=== PATIENT | female | born 1945 ===

== ENCOUNTER 2021-01-26 09:00 | Inpatient (IN) | payer OTHER ==
[~2021-01-26] VITALS: Ht 172.7 cm; Wt 81.6 kg
[2021-01-26] MEDS ORDERED: PAXIL40 MG PO (14:14)
[2021-01-26] MEDS ORDERED: FORTAMET1000 MG PO (14:14)
[2021-01-26] MEDS ORDERED: LOSART PO (14:14)
[2021-01-26] MEDS ORDERED: GABAPENT PO (14:15)
[2021-01-26] MEDS ORDERED: LANTUS ×2 (14:16→14:17)
[2021-01-26] MEDS ORDERED: AMBIEN10 MG PO (14:16)
[2021-02-02] MEDS ORDERED: GABAPENTIN800 M1 PO (11:53)
[2021-02-02] MEDS ORDERED: COZAAR25 MG PO (11:54)
[2021-02-04] MEDS ORDERED: ELIQUIS2.5 MG PO (10:19)
[2021-02-04] MEDS ORDERED: PERCOCET 5-3251 EACH PO (10:19)
[2021-02-04] MEDS ORDERED: DUI500 PO (10:19)
[2021-02-05] MEDS ORDERED: DUI500 PO (08:13)
[2021-02-05] MEDS ORDERED: ELIQUIS2.5 MG PO (08:13)
[2021-02-05] MEDS ORDERED: PERCOCET 5-3251 EACH PO (08:13)
== END 2021-02-05 14:50 | DRG 470 ==
LOC: SURG 02-02 06:42 → O/R 02-02 06:42 → SURG 02-02 14:38
PROVIDERS: ADMIT Orthopaedic Surgery; ATTEND Orthopaedic Surgery
PROC: 0SRC0J9 Replacement of Right Knee Joint with Synthetic Substitute, Cemented, Open Approach (ICD-10-PCS; principal; 2021-02-02 09:15)
DX: M17.11 Unilateral primary osteoarthritis, right knee (principal); D62 Acute posthemorrhagic anemia; I10 Essential (primary) hypertension; E66.9 Obesity, unspecified; E11.65 Type 2 diabetes mellitus with hyperglycemia